=== PATIENT | male | born 1985 | race Caucasian/White ===

== ENCOUNTER 2017-02-06 21:05 | Inpatient (IN) | payer OTHER ==
[~2017-02-06] VITALS: Ht 182.9 cm; Wt 114.8 kg
--- NOTE | ~2017-02-06 | HC ---
[facility] [address] [place] [address] CONSULTATION Name: TONY GAR Room #: 316-P ADM IN M.R.#: [id number] Admission: 02/06/17 Attend Phys: Haylie Borrego MD Discharge: Date of : 81 Report #: [id number] THIS REPORT FOR: //name// CC: EL physician/PCP Haylie Borrego DATE OF SERVICE: 02/07/2017 REASON FOR CONSULTATION: Accelerated hypertension and advanced renal insufficiency. HISTORY OF PRESENT ILLNESS: This 31-year-old male has a significant history of hypertension of a challenging and difficult nature. The patient has apparently undergone a previous renal biopsy in [place], which reportedly showed only accelerated hypertension type changes. I do not have access to that report and have not confirmed it, however. The patient lived in [place] for a period of time and had difficult to control blood pressure there. He recently returned to the [place] area. He developed the onset of acute back pain and presented to the [facility] Emergency Room on Sunday of this past weekend. He was hospitalized there with severe hypertension, treated initially with Cardene. He was subsequently in the process of being converted to an oral regimen, but had a disagreement with the nursing staff and left acutely from the ICU last evening. He presented to the [facility] Emergency Room shortly thereafter with a blood pressure that was elevated to the 200/120 range and was admitted for further evaluation and treatment. PAST MEDICAL HISTORY: Remarkable for chronic kidney disease and hypertension as described. He has been told that his heart shows signs of chronic hypertension changes. PERSONAL AND SOCIAL HISTORY: The patient smokes 1 to 1-1/2 packs daily. He denies any alcohol abuse. He does smoke marijuana. FAMILY HISTORY: Remarkable for multiple immediate family members with hypertension. ALLERGIES: He has no known drug allergies. MEDICATIONS: On admission to the hospital are reported to include amlodipine 10 mg daily, carvedilol 25 mg b.i.d., clonidine 0.3 mg b.i.d., lisinopril/hydrochlorothiazide 20/25 mg daily, and hydralazine 25 mg tablet 4 tablet t.i.d. REVIEW OF SYSTEMS: Remarkable for the absence of edema. He denies shortness of [facility] [address] [place] [address] CONSULTATION Name: TONY GAR Room #: 316-P [facility] IN ..#: [id number] Admission: 02/06/17 Attend Phys: Haylie Borrego MD Discharge: Date of : 81 Report #: [id number] breath, productive cough, hemoptysis, chest pain, palpitations, nausea, vomiting, diarrhea or constipation. PHYSICAL EXAMINATION: GENERAL: Reveals a well-developed, well-nourished male, appearing his stated age, in no acute distress. He has multiple professional tattoos in place. VITAL SIGNS: Blood pressure 151/83, temperature 36.6, pulse 52, and respirations 20. SKIN: Warm and dry. EXTREMITIES: There is no clubbing, cyanosis, edema, or adenopathy. HEENT: The head is normocephalic and atraumatic. The sclerae are white. The pharynx is benign. NECK: Supple. LUNGS: Hernandez are grossly clear to percussion and auscultation. CARDIOVASCULAR: Reveals a regular rate and rhythm. ABDOMEN: Soft and nontender without palpable mass or organomegaly. NEUROLOGIC: Reveals the patient to be alert and cooperative with a nonfocal exam. LABORATORY STUDIES: Available at this time include sodium 142, potassium 3.7, chloride 106, CO2 of 25, BUN 36, creatinine 3.6, and glucose 106. White blood cell count 10,200, hemoglobin 14.2, hematocrit 39.5, and platelet count 219,000. Urinalysis is not available. ASSESSMENT: 1. Accelerated hypertension with hypertensive nephropathy. The patient needs blood pressure control to an intermediate range of 160/90 in a stepwise progression to an ultimate goal in the blood pressure range of 140/80. He should be managed with a b.i.d. antihypertensive regimen as t.i.d. or q.i.d. regimens have proven to be virtually impossible to comply with on an ongoing basis. Optimal management would likely include minoxidil, labetalol and torsemide. 2. Chronic back pain of undetermined etiology. 3. Ongoing tobacco abuse. 4. History of snoring and suspected sleep apnea with excessive daytime sleepiness. I have discussed with the patient, his and mother that it is of great importance that his status regarding sleep apnea be correctly identified and managed so as to avoid catecholamine swings, which occur during the course of hypoxic insults on a nightly basis. Many thanks for this consultation. We will follow with you. <ELECTRONICALLY SIGNED> By: Robert Toth MD 02/08/17 0557 [id number] 1415 Robert Toth MD /nt
--- NOTE | ~2017-02-06 | EKG ---
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
[~2017-02-06 21:05] MED LIST: AMOXICILLIN 50500 M1 PO; BACTRIM DS TAB1 EACH PO; CARVEDILOL25 MG PO; CLEOCIN HCL150 MG PO; CLONIDINE HCL0.3 M2 PO; CLONIDINE HCL0.3 M3 PO; KEFLEX500 MG PO; LISINOPRIL-HCT1 EAC2 PO; NORCO 5-325 TA1 EACH PO; NORCO 7.5-3251 EACH PO; NORFLEX100 MG PO; NORVASC10 MG PO; PERCOCET 5-3251 EACH PO; SIMVASTATIN20 MG PO; TRANDATE 200 M200 M1 OR; ULTRAM 50MG TAB50 MG PO
[2017-02-06 21:07] VITALS: BP 233/149
[2017-02-06 21:43] LABS: ABSOLUTE NEUTROPHILS 6.9 thou/uL (1.4-8.2); BASOPHILS 0.9 % (0.0-2.0); EOSINOPHILS 2.3 % (0.0-3.0); HEMATOCRIT 39.5 % (42.0-52.0); HEMOGLOBIN 14.2 gm/dL (14.0-18.0); LYMPHOCYTES 23.7 % (24.0-44.0); MCH 29.5 pg (26.0-34.0); MCHC 35.8 g/dL (28.0-37.0); MCV 82.2 fL (80.0-100.0); MONOCYTES 5.2 % (1.0-8.0); PLATELET COUNT 219 thou/uL (150-400); POLYS 67.9 % (36.0-66.0); RBC 4.81 mil/uL (4.50-6.00); RDW 13.6 % (10.5-14.5); WBC 10.2 thou/uL (4.0-11.0)
[2017-02-06 21:45] LABS: MANUAL DIFF NO
[2017-02-06 21:53] LABS: ANION GAP 9 mmol/L (7-16); BUN 40 mg/dL (7-18); CALCIUM 8.8 mg/dL (8.5-10.1); CHLORIDE 104 mmol/L (98-107); CO2 25 mmol/L (21-32); CREATININE 3.7 mg/dL (0.6-1.3); GLUCOSE 105 mg/dL (70-99); POTASSIUM 3.9 mmol/L (3.5-5.1); SODIUM 138 mmol/L (136-145)
[2017-02-06 21:56] LABS: APTT 27.7 Seconds (24.5-32.8); PROTIME 10.2 Seconds (9.3-11.4)
[2017-02-06] MEDS ORDERED: HYDRALAZINE 2525 MG PO (21:57)
[2017-02-06] MEDS ORDERED: LABETALOL HCL100 MG PO (21:57)
[2017-02-06 22:02] LABS: ALKALINE PHOSPHATASE 76 U/L (46-116); NT-PRO BRAIN NAT PEPTIDE 488 pg/mL (<300); SGPT 50 U/L (30-65); TOTAL BILIRUBIN 0.6 mg/dL (<0.1-1.0); TOTAL PROTEIN 7.4 g/dL (6.4-8.2); TROPONIN-I < 0.04 ng/mL (<0.04-0.07)
[2017-02-06 22:15] LABS: SGOT 49 U/L (15-37)
[2017-02-06 23:35] VITALS: BP 188/98
[2017-02-07] VITALS (8 sets, daily range): BP systolic 118–194; BP diastolic 77–114
[2017-02-07 06:56] LABS: CALCIUM 8.6 mg/dL (8.5-10.1); CREATININE 3.6 mg/dL (0.6-1.3); POTASSIUM 3.7 mmol/L (3.5-5.1)
[2017-02-07 18:30] LABS: URINE BILIRUBIN NEGATIVE (Negative); URINE BLOOD 1+ (Negative); URINE COLOR YELLOW; URINE GLUCOSE-RANDOM* NEGATIVE (Negative); URINE KETONES NEGATIVE (Negative); URINE NITRITE NEGATIVE (Negative); URINE PROTEIN (DIPSTICK) 3+ (Negative); URINE SPECIFIC GRAVITY 1.025 (1.003-1.035)
[2017-02-07 18:39] LABS: SQUAMOUS 0-3 Few /LPF (0-3)
[2017-02-07 18:40] LABS: CASTS None Seen /LPF (None Seen); CRYSTALS None Seen /LPF (None Seen); URINE RBC 0-2 Rare /HPF (0-2); URINE WBC 0-5 Rare /HPF (0-5)
[2017-02-08] VITALS (8 sets, daily range): BP systolic 144–228; BP diastolic 77–125
[2017-02-08 00:10] LABS: URINE CREATININE-RANDOM* 168.2 mg/dL (Not Estab.)
[2017-02-08 05:35] LABS: HEMATOCRIT 38.8 % (42.0-52.0); HEMOGLOBIN 13.4 gm/dL (14.0-18.0); MCH 28.7 pg (26.0-34.0); MCHC 34.7 g/dL (28.0-37.0); MCV 82.7 fL (80.0-100.0); RBC 4.69 mil/uL (4.50-6.00); RDW 13.1 % (10.5-14.5); WBC 6.1 thou/uL (4.0-11.0)
[2017-02-08 06:00] LABS: ALBUMIN 3.5 g/dL (3.4-5.0); CALCIUM 8.9 mg/dL (8.5-10.1); CREATININE 3.7 mg/dL (0.6-1.3); POTASSIUM 3.7 mmol/L (3.5-5.1)
[2017-02-09 03:48] VITALS: BP 168/101
[2017-02-09 04:44] LABS: ALBUMIN 3.7 g/dL (3.4-5.0); CALCIUM 9.2 mg/dL (8.5-10.1); CREATININE 3.9 mg/dL (0.6-1.3); PHOSPHORUS 4.3 mg/dL (2.5-4.9); POTASSIUM 4.2 mmol/L (3.5-5.1)
[2017-02-09 08:50] VITALS: BP 189/102
[2017-02-09 11:29] VITALS: BP 177/99
[2017-02-09 15:52] VITALS: BP 170/108
[2017-02-09 19:17] VITALS: BP 176/119
[2017-02-09 22:30] VITALS: BP 155/91
[2017-02-10 04:26] VITALS: BP 165/87
[2017-02-10 08:30] VITALS: BP 225/139
[2017-02-10 10:26] VITALS: BP 129/76
[2017-02-10 10:38] LABS: ABSOLUTE NEUTROPHILS 2.5 thou/uL (1.4-8.2); BASOPHILS 0.8 % (0.0-2.0); EOSINOPHILS 2.6 % (0.0-3.0); HEMATOCRIT 40.7 % (42.0-52.0); HEMOGLOBIN 14.8 gm/dL (14.0-18.0); LYMPHOCYTES 41.1 % (24.0-44.0); MCH 29.6 pg (26.0-34.0); MCHC 36.3 g/dL (28.0-37.0); MCV 81.5 fL (80.0-100.0); MONOCYTES 5.8 % (1.0-8.0); PLATELET COUNT 196 thou/uL (150-400); POLYS 49.7 % (36.0-66.0); RDW 13.4 % (10.5-14.5); WBC 5.1 thou/uL (4.0-11.0)
[2017-02-10 10:40] LABS: MANUAL DIFF NO
[2017-02-10 10:47] LABS: CALCIUM 9.2 mg/dL (8.5-10.1); CREATININE 4.2 mg/dL (0.6-1.3); POTASSIUM 4.3 mmol/L (3.5-5.1)
[2017-02-10] MEDS ORDERED: ALDACTONE25 MG PO (12:00)
[2017-02-10] MEDS ORDERED: TORSEMIDE20 MG PO (12:01)
[2017-02-10 12:24] VITALS: BP 129/76
[2017-02-10 14:20] VITALS: BP 129/76
== END 2017-02-10 13:38 | disposition home or self-care (01) | DRG 683 ==
LOC: ER 21:05 → 3N 22:47 → EROBS 22:47 → 3N 23:21
PROVIDERS: Emergency Medicine; Family Medicine; Internal Medicine Nephrology
DX: I12.9 Hypertensive chronic kidney disease with stage 1 through stage 4 chronic kidney disease, or unspecified chronic kidney disease (principal); N18.4 Chronic kidney disease, stage 4 (severe); N17.9 Acute kidney failure, unspecified; I16.0 Hypertensive urgency; F17.210 Nicotine dependence, cigarettes, uncomplicated; F12.90 Cannabis use, unspecified, uncomplicated; G47.30 Sleep apnea, unspecified; G89.29 Other chronic pain; M54.9 Dorsalgia, unspecified; Z71.6 Tobacco abuse counseling; Z79.899 Other long term (current) drug therapy; Z82.49 Family history of ischemic heart disease and other diseases of the circulatory system
CPT/HCPCS: 10096

== ENCOUNTER 2017-02-12 15:37 | Emergency (ER) | payer OTHER ==
[~2017-02-12] VITALS: Ht 182.9 cm; Wt 111.1 kg
[~2017-02-12 15:37] MED LIST changes: +ALDACTONE25 MG PO; +HYDRALAZINE 2525 MG PO; +LABETALOL HCL100 MG PO; +TORSEMIDE20 MG PO
[2017-02-12] MEDS ORDERED: ULTRAM 50MG TAB50 MG PO (17:22)
== END 2017-02-12 17:50 | disposition home or self-care (01) ==
LOC: ER 15:37
DX: S99.921A Unspecified injury of right foot, initial encounter (principal); N18.4 Chronic kidney disease, stage 4 (severe); I10 Essential (primary) hypertension; W20.8XXA Other cause of strike by thrown, projected or falling object, initial encounter; Y93.89 Activity, other specified; Y92.89 Other specified places as the place of occurrence of the external cause; Y99.9 Unspecified external cause status

== ENCOUNTER 2017-04-20 21:53 | Emergency (ER) | payer OTHER ==
[~2017-04-20] VITALS: Ht 182.9 cm; Wt 113.4 kg
--- NOTE | ~2017-04-20 | EKG ---
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: Rubio JOHNS : 1985 Requested By: J Carlos Mchugh Order Number: [id number] MD: Diallo Salazar Measurements Intervals [place] Rate: 77 P: 38 MS: 145 QRS: 2 QRSD: 114 T: 193 QT: 415 QTc: 470 Interpretive Statements Sinus rhythm Probable left ventricular hypertrophy Nonspecific ST and T wave abnormality Borderline prolonged QT interval Compared to ECG 02/06/2017 21:39:56 nonspecific change in the ST and T-wave segments Electronically Signed On 04-22-2017 15:50:37 CDT by Diallo Salazar [email or web address] <ELECTRONICALLY SIGNED> By: Diallo Salazar MD, [facility] 04/22/17 1550 2156 2156 Diallo Salazar MD, [facility] /EPI
--- NOTE | ~2017-04-20 | EKG ---
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: [id number] : 1985 Requested By: J Carlos Mchugh Order Number: [id number] MD: Diallo Salazar Measurements Intervals [place] Rate: 57 P: 41 SD: 147 QRS: 10 QRSD: 114 T: -84 QT: 459 QTc: 447 Interpretive Statements Sinus rhythm Probable left atrial enlargement Borderline intraventricular conduction delay Borderline repolarization abnormality Compared to ECG 02/06/2017 21:39:56 no significant change was found Electronically Signed On 04-22-2017 15:51:01 CDT by Diallo Salazar [email or web address] <ELECTRONICALLY SIGNED> By: Diallo Salazar MD, [facility] 04/22/17 1551 4 4 Diallo Salazar MD, [facility] /EPI
[2017-04-20 22:08] LABS: ABSOLUTE NEUTROPHILS 9.1 thou/uL (1.4-8.2); BASOPHILS 0.6 % (0.0-2.0); EOSINOPHILS 1.4 % (0.0-3.0); HEMATOCRIT 41.5 % (42.0-52.0); HEMOGLOBIN 14.6 gm/dL (14.0-18.0); LYMPHOCYTES 19.8 % (24.0-44.0); MCH 29.1 pg (26.0-34.0); MCHC 35.2 g/dL (28.0-37.0); MCV 82.6 fL (80.0-100.0); MONOCYTES 6.2 % (1.0-8.0); PLATELET COUNT 221 thou/uL (150-400); RBC 5.02 mil/uL (4.50-6.00); WBC 12.6 thou/uL (4.0-11.0)
[2017-04-20 22:09] LABS: MANUAL DIFF NO
[2017-04-20 22:15] LABS: ANION GAP 15 mmol/L (7-16); BUN 51 mg/dL (7-18); CALCIUM 9.2 mg/dL (8.5-10.1); CHLORIDE 101 mmol/L (98-107); CO2 26 mmol/L (21-32); CREATININE 3.9 mg/dL (0.7-1.3); GLUCOSE 126 mg/dL (74-106); POTASSIUM 3.2 mmol/L (3.5-5.1); SODIUM 142 mmol/L (136-145)
[2017-04-20] MEDS ORDERED: DEMADEX20 MG PO (22:23)
[2017-04-20 22:29] LABS: NT-PRO BRAIN NAT PEPTIDE 271 pg/mL (<300); TROPONIN-I < 0.04 ng/mL (<0.04-0.07)
[2017-04-21 00:53] LABS: ALBUMIN 4.3 g/dL (3.4-5.0); ALKALINE PHOSPHATASE 60 U/L (46-116); DIRECT BILIRUBIN 0.1 mg/dL (<0.1-0.3); SGOT 21 U/L (15-37); SGPT 33 U/L (30-65); TOTAL BILIRUBIN 0.5 mg/dL (<0.1-1.0); TOTAL PROTEIN 7.7 g/dL (6.4-8.2); TROPONIN-I < 0.04 ng/mL (<0.04-0.07)
[2017-04-21] MEDS ORDERED: NORCO 5-325 TA1 EACH PO (01:50)
[2017-04-21] MEDS ORDERED: ONDANSETRON HCL4 M2 PO (01:50)
[2017-04-21] MEDS ORDERED: CARAFATE 1 GM TA1 G1 PO (01:50)
[2017-04-21] MEDS ORDERED: PRILOSEC OTC20 MG PO (01:50)
== END 2017-04-21 02:05 | disposition home or self-care (01) ==
LOC: ER 21:53
PROVIDERS: Emergency Medicine
DX: K29.70 Gastritis, unspecified, without bleeding (principal); R07.89 Other chest pain; I12.9 Hypertensive chronic kidney disease with stage 1 through stage 4 chronic kidney disease, or unspecified chronic kidney disease; N18.4 Chronic kidney disease, stage 4 (severe); F17.210 Nicotine dependence, cigarettes, uncomplicated

== ENCOUNTER 2017-05-07 11:15 | Emergency (ER) | payer OTHER ==
[~2017-05-07] VITALS: Ht 152.4 cm; Wt 68.0 kg
[~2017-05-07 11:15] MED LIST changes: +CARAFATE 1 GM TA1 G1 PO; +DEMADEX20 MG PO; +ONDANSETRON HCL4 M2 PO; +PRILOSEC OTC20 MG PO
== END 2017-05-07 12:59 | disposition left against medical advice (07) ==
LOC: ER 11:15
DX: Z53.21 Procedure and treatment not carried out due to patient leaving prior to being seen by health care provider (principal)

== ENCOUNTER 2017-08-02 04:58 | Emergency (ER) | payer OTHER ==
[~2017-08-02] VITALS: Ht 182.9 cm; Wt 108.9 kg
[~2017-08-02 04:58] MED LIST changes: +PREDNISONE 20 M20 MG PO; +TRAMADOL 50 MG50 MG PO; +VALIUM5 MG PO
[2017-08-02] MEDS ORDERED: AMOXICILLIN 50500 M1 PO (05:29)
[2017-08-02] MEDS ORDERED: ULTRAM 50MG TAB50 MG PO (05:29)
== END 2017-08-02 06:13 | disposition home or self-care (01) ==
LOC: ER 04:58
DX: K08.89 Other specified disorders of teeth and supporting structures (principal); I12.9 Hypertensive chronic kidney disease with stage 1 through stage 4 chronic kidney disease, or unspecified chronic kidney disease; N18.4 Chronic kidney disease, stage 4 (severe); F17.210 Nicotine dependence, cigarettes, uncomplicated

== ENCOUNTER 2017-12-26 19:40 | Emergency (ER) | payer OTHER ==
[~2017-12-26] VITALS: Ht 182.9 cm; Wt 113.4 kg
[~2017-12-26 19:40] MED LIST changes: +CIPRO500 MG PO; +HYDROCODONE-AP1 EAC6 PO
[2017-12-26 19:41] VITALS: BP 201/119
[2017-12-26] MEDS ORDERED: HYDROCODONE-AP1 EAC6 PO (20:10)
[2018-07-18] MEDS ORDERED: NORCO 5-325 TA1 EACH PO (12:39)
[2018-07-18] MEDS ORDERED: NORFLEX100 MG PO (12:39)
== END 2017-12-26 20:27 | disposition home or self-care (01) ==
LOC: ER 19:40
DX: S46.002A Unspecified injury of muscle(s) and tendon(s) of the rotator cuff of left shoulder, initial encounter (principal); I12.9 Hypertensive chronic kidney disease with stage 1 through stage 4 chronic kidney disease, or unspecified chronic kidney disease; N18.4 Chronic kidney disease, stage 4 (severe); F17.210 Nicotine dependence, cigarettes, uncomplicated; X58.XXXA Exposure to other specified factors, initial encounter; Y93.89 Activity, other specified; Y92.89 Other specified places as the place of occurrence of the external cause; Y99.8 Other external cause status